=== PATIENT | female | born 2000 | race Caucasian/White ===

== ENCOUNTER → 2021-10-25 14:01 | Outpatient (CLI) | payer OTHER, SELFPAY ==
--- NOTE | 2021-10-25 | DI.MRI.S_ITS ---
PROCEDURE: MR LUMBAR SPINE WO CON INDICATIONS: RIGHT HIP SPRAIN TECHNIQUE: Noncontrast sagittal T1 spin echo and T2 fast echo, sagittal STIR, and T2 fast spin echo through the lumbar spine. In cases with scoliosis, additional coronal T2 fast spin echo may be performed. COMPARISON: [facility], CR, XR LUMBAR SPINE WITH FLEXION EXTENSION 5 VIEWS, 12/06/2020, 8:54. FINDINGS: Image quality: Excellent. Alignment and Curvature: There is normal bony alignment. Bone Marrow: Marrow is of normal overall signal. No acute vertebral body compression fractures. Spinal Cord: Conus medullaris terminates at the T12-L1 level. Visualized cord demonstrates normal signal and size. Paraspinous Soft Tissues: No paravertebral masses. T12-L1: Normal appearance. L1-L2: Normal appearance. L2-L3: Normal appearance. L3-L4: The disc height is well-preserved. Loss of disc signal is seen at this level. Mild disc bulge is seen, with a central/left disc protrusion. No neural foraminal narrowing is seen. Mild to moderate central canal narrowing is seen, as on series 5, image 21. L4-L5: Normal appearance. L5-S1: The disc height is well-preserved. Loss of disc signal is seen at this level. Mild disc bulge is seen, with a central/right disc protrusion, as on series 5, image 33 and on series 2, image 8. Minimal mass effect can be seen upon the transiting right S1 nerve root. There is a focal annular fissure seen posteriorly. No significant neural foraminal or central canal narrowing can be seen. IMPRESSION: Premature degenerative changes can be seen at L3-L4 and L5-S1. Dictated by: Mansoor Mario M.D. on 10/25/2021 at 14:09 Approved by: Mansoor Mario M.D. on 10/25/2021 at 14:11
== END ==
PROVIDERS: PCP Nurse Practitioner Family; Referring Provider Orthopaedic Surgery; Visit Provider Orthopaedic Surgery
DX: M51.26 Other intervertebral disc displacement, lumbar region (principal); M51.27 Other intervertebral disc displacement, lumbosacral region; S73.191D Other sprain of right hip, subsequent encounter
CPT/HCPCS: 72148